=== PATIENT | male | born 1955 | race Caucasian/White ===

== ENCOUNTER 2022-05-18 14:51 | Outpatient (CLI) | payer BC ==
[~2022-05-18 14:51] MED LIST: Iopamidol 300 61% 100 ML VIAL FS ONE
== END 2022-05-18 14:52 | disposition home or self-care (01) ==
LOC: CSHCT 14:51
PROVIDERS: ATTEND Otolaryngology Otolaryngic Allergy
DX: R22.0 Localized swelling, mass and lump, head (principal); K11.9 Disease of salivary gland, unspecified
CPT/HCPCS: 70491; 82565; Q9967